=== PATIENT | male | born 1965 | race African-American/Black ===

== ENCOUNTER 2017-10-21 23:12 | Emergency (ER) | payer SELFPAY ==
[~2017-10-21] VITALS: Ht 182.9 cm; Wt 90.7 kg
[2017-10-22 03:50] VITALS: BP 148/98
== END 2017-10-22 03:54 ==
LOC: EDBD 23:12 → ER 23:15
DX: F10.129 Alcohol abuse with intoxication, unspecified (principal); R51 Headache; M54.2 Cervicalgia; V49.9XXA Car occupant (driver) (passenger) injured in unspecified traffic accident, initial encounter; Y93.89 Activity, other specified; Y92.89 Other specified places as the place of occurrence of the external cause; Y99.8 Other external cause status
CPT/HCPCS: 70450; 72125